=== PATIENT | male | born 1965 | race Caucasian/White ===

== ENCOUNTER → 2020-09-04 | Outpatient (CLI) | payer BC ==
[~2020-09-04] MED LIST: METF-397 PO; ROSU10TA22 PO
== END ==
LOC: LABNPT 07:09
PROVIDERS: ATTEND Otolaryngology
DX: Z53.9 Procedure and treatment not carried out, unspecified reason (principal)
CPT/HCPCS: 87635

== ENCOUNTER → 2020-09-05 | Outpatient (CLI) | payer BC | LOC: LABNPT 03:24 | PROVIDERS: ATTEND Otolaryngology | DX: Z20.822 Contact with and (suspected) exposure to COVID-19 (principal) | CPT/HCPCS: 87635 ==

== ENCOUNTER 2020-09-06 19:43 | Outpatient (CLI) | payer BC | END 2020-09-07 06:15 | disposition home or self-care (01) | LOC: SLEEP 19:43 | PROVIDERS: ATTEND Otolaryngology | DX: G47.33 Obstructive sleep apnea (adult) (pediatric) (principal); G47.10 Hypersomnia, unspecified; Z20.822 Contact with and (suspected) exposure to COVID-19 | CPT/HCPCS: 95810 ==

== ENCOUNTER → 2020-11-07 | Outpatient (CLI) | payer BC | LOC: LABNPT 08:15 | PROVIDERS: ATTEND Otolaryngology | DX: Z20.822 Contact with and (suspected) exposure to COVID-19 (principal) | CPT/HCPCS: 87635 ==